=== PATIENT | female | born 1950 | race Caucasian/White ===

== ENCOUNTER 2023-11-09 19:39 | Emergency (ER) | payer OTHER ==
[~2023-11-09] VITALS: Ht 157.5 cm; Wt 85.7 kg
== END 2023-11-10 05:02 | disposition home or self-care (01) ==
LOC: ER 19:39
DX: S02.2XXA Fracture of nasal bones, initial encounter for closed fracture (principal); W01.0XXA Fall on same level from slipping, tripping and stumbling without subsequent striking against object, initial encounter; Z88.5 Allergy status to narcotic agent
CPT/HCPCS: 99283